=== PATIENT | male | born 1955 | race Two or more races ===

== ENCOUNTER 2025-07-06 20:16 | Emergency (ER) | payer MEDICARE, OTHER ==
[~2025-07-06] VITALS: Ht 170.2 cm; Wt 79.4 kg
[2025-07-06 20:24] VITALS: BP 116/65; TEMP 98.3; O2SAT 96
[2025-07-06 21:28] LABS: PLATELET COUNT (AUTO) 176 K/uL (150-450); RED BLOOD CELL COUNT(AUTO) 3.63 MIL/uL (4.5-6.0); RED CELL DISTRIBUTION WIDTH 13.9 % (11.5-15.0); WHITE BLOOD COUNT (AUTO) 5.9 K/uL (4.3-11.0)
[2025-07-06 21:39] LABS: CALCIUM, SERUM 8.8 mg/dL (8.5-10.1); CREATININE 0.9 mg/dL (0.6-1.3); SODIUM SERUM 139 mmol/L (136-145); UREA NITROGEN, BLOOD 28 mg/dL (7-18)
[2025-07-06 21:45] LABS: ASPARTATE AMINOTRANSFERASE 39 U/L (15-37); TOTAL PROTEIN, SERUM 7.5 g/dL (6.4-8.2)
[2025-07-06 23:13] LABS: APPEARANCE,URINE CLEAR (CLEAR); BLOOD, URINE TRACE-INTA Ery/uL (NEGATIVE); LEUKOCYTE ESTERASE ,URINE NEGATIVE (NEGATIVE); NITRITE, URINE NEGATIVE (NEGATIVE); UGLUCOSE NEGATIVE (NEGATIVE)
[2025-07-06 23:42] LABS: AMPHETAMINE, URINE NEGATIVE (NEGATIVE); BARBITURATE, URINE NEGATIVE (NEGATIVE); BENZODIAZEPINE, URINE NEGATIVE (NEGATIVE); CANNABINOID, URINE NEGATIVE (NEGATIVE); COCCAINE, URINE NEGATIVE (NEGATIVE); OPIATE, URINE NEGATIVE (NEGATIVE)
[2025-07-06 23:43] LABS: ADD URINE CULTURE NO; SQUAMOUS EPITHELIAL CELL,UR 0-2 /HPF (None Seen)
== END 2025-07-07 01:42 ==
LOC: ER 20:32
DX: R45.6 Violent behavior (principal); I10 Essential (primary) hypertension; G81.90 Hemiplegia, unspecified affecting unspecified side; F31.9 Bipolar disorder, unspecified; Z86.73 Personal history of transient ischemic attack (TIA), and cerebral infarction without residual deficits; Z79.899 Other long term (current) drug therapy
CPT/HCPCS: 36415; 80048-TC; 80076-TC; 81001; 85025-TC

== ENCOUNTER 2025-07-19 12:48 | Inpatient (IN) | payer MEDICARE, OTHER ==
[~2025-07-19] VITALS: Ht 170.2 cm; Wt 62.6 kg
[2025-07-19 13:20] LABS: PLATELET COUNT (AUTO) 133 K/uL (150-450); RED BLOOD CELL COUNT(AUTO) 3.87 MIL/uL (4.5-6.0); RED CELL DISTRIBUTION WIDTH 13.9 % (11.5-15.0); WHITE BLOOD COUNT (AUTO) 5.2 K/uL (4.3-11.0)
[2025-07-19] MEDS ORDERED: ASCO500T20 PO (13:25)
[2025-07-19] MEDS ORDERED: FAMO20TA8 PO (13:25)
[2025-07-19] MEDS ORDERED: QUET50TA PO (13:25)
[2025-07-19] MEDS ORDERED: ACET325T53 PO (13:25)
[2025-07-19] MEDS ORDERED: BISA10SU11 RC (13:25)
[2025-07-19] MEDS ORDERED: DIVA250T4 PO (13:25)
[2025-07-19] MEDS ORDERED: AZAT100T PO (13:25)
[2025-07-19] MEDS ORDERED: CRAN425C6 PO (13:25)
[2025-07-19] MEDS ORDERED: CHOL100062 PO (13:25)
[2025-07-19] MEDS ORDERED: QUET100T PO (13:25)
[2025-07-19 13:26] LABS: CALCIUM, SERUM 8.8 mg/dL (8.5-10.1); CREATININE 0.8 mg/dL (0.6-1.3); SODIUM SERUM 137 mmol/L (136-145); UREA NITROGEN, BLOOD 17 mg/dL (7-18)
[2025-07-19] MEDS ORDERED: AMIN30LI66 PO (13:26)
[2025-07-19] MEDS ORDERED: MAGN400O6 PO (13:26)
[2025-07-19] MEDS ORDERED: NA P133E RC (13:26)
[2025-07-19] MEDS ORDERED: HYDR-4076 PO (13:26)
[2025-07-19] MEDS ORDERED: MELA3TAB41 PO (13:26)
[2025-07-19] MEDS ORDERED: MULT-594 PO (13:26)
[2025-07-19] MEDS ORDERED: LACO10SO PO (13:26)
[2025-07-19] MEDS ORDERED: SENN8.6T19 PO (13:26)
[2025-07-19 13:34] LABS: ALCOHOL, BLOOD < 3 mg/dL (0-10); ASPARTATE AMINOTRANSFERASE 23 U/L (15-37); TOTAL PROTEIN, SERUM 7.9 g/dL (6.4-8.2)
[2025-07-19 13:39] LABS: APPEARANCE,URINE CLEAR (CLEAR); BLOOD, URINE Trace-intact Ery/uL (NEGATIVE); LEUKOCYTE ESTERASE ,URINE Negative (NEGATIVE); NITRITE, URINE NEGATIVE (NEGATIVE); UGLUCOSE Negative (NEGATIVE)
[2025-07-19 13:45] LABS: ADD URINE CULTURE NO; SQUAMOUS EPITHELIAL CELL,UR None Seen /HPF (None Seen)
[2025-07-19 13:57] LABS: AMPHETAMINE, URINE NEGATIVE (NEGATIVE); BARBITURATE, URINE NEGATIVE (NEGATIVE); BENZODIAZEPINE, URINE NEGATIVE (NEGATIVE); CANNABINOID, URINE NEGATIVE (NEGATIVE); COCCAINE, URINE NEGATIVE (NEGATIVE); OPIATE, URINE NEGATIVE (NEGATIVE)
[2025-07-19] MEDS ORDERED: Z GUARD REMEDY 4 OZ OINT TP PRN (16:30)
[2025-07-19] MEDS ORDERED: MAGNESIUM HYDROXIDE 30 ML UDC PO PRN ×2 (16:30)
[2025-07-19] MEDS ORDERED: NA PHOS,M-B/NA PHOS,DI-BA 1 EA ENEMA RC PRN (16:30)
[2025-07-19] MEDS ORDERED: ONDANSETRON HCL/PF 4 MG/2 ML VIAL IVP PRN (16:30)
[2025-07-19] MEDS ORDERED: MAG HYDROX/AL HYDROX/SIMETH 30 ML UDC PO PRN (16:30)
[2025-07-19] MEDS: LACOSAMIDE ORAL SOLN 50 MG/5 ML UDC PO SCH (17:08)
[2025-07-19] MEDS: SENNOSIDES 8.6 MG TABLET PO SCH (17:09)
[2025-07-19] MEDS: FAMOTIDINE (20 MG) 20 MG TABLET PO SCH (17:09)
[2025-07-19 18:26] VITALS: BP 129/60; TEMP 98.4; O2SAT 97
[2025-07-19] MEDS: IV NS 0.9% 1,000 ML IV PRN (18:32)
[2025-07-19 20:00] VITALS: BP 127/71; TEMP 98.1; O2SAT 98
[2025-07-19] MEDS: QUETIAPINE FUMARATE 100 MG TABLET PO SCH (22:20)
[2025-07-20 05:55] LABS: PLATELET COUNT (AUTO) 118 K/uL (150-450); RED BLOOD CELL COUNT(AUTO) 3.74 MIL/uL (4.5-6.0); RED CELL DISTRIBUTION WIDTH 14.0 % (11.5-15.0); WHITE BLOOD COUNT (AUTO) 4.1 K/uL (4.3-11.0)
[2025-07-20 06:10] LABS: CALCIUM, SERUM 8.9 mg/dL (8.5-10.1); CREATININE 0.9 mg/dL (0.6-1.3); PHOSPHORUS 3.7 mg/dL (2.5-4.9); SODIUM SERUM 141.0 mmol/L (136-145); UREA NITROGEN, BLOOD 16.0 mg/dL (7-18)
[2025-07-20 08:00] VITALS: BP 122/66; TEMP 97.6; O2SAT 100
[2025-07-20 16:00] VITALS: BP 134/73; TEMP 97.7; O2SAT 96
[2025-07-20] MEDS: LORAZEPAM 1 MG TABLET PO PRN (17:32)
[2025-07-20 20:00] VITALS: BP 137/80; TEMP 98.1; O2SAT 96
[2025-07-21 06:56] LABS: PLATELET COUNT (AUTO) 114 K/uL (150-450); RED BLOOD CELL COUNT(AUTO) 3.98 MIL/uL (4.5-6.0); RED CELL DISTRIBUTION WIDTH 13.8 % (11.5-15.0); WHITE BLOOD COUNT (AUTO) 4.8 K/uL (4.3-11.0)
[2025-07-21 07:33] LABS: ASPARTATE AMINOTRANSFERASE 21.0 U/L (15-37); CALCIUM, SERUM 9.0 mg/dL (8.5-10.1); CREATININE 0.8 mg/dL (0.6-1.3); PHOSPHORUS 3.4 mg/dL (2.5-4.9); SODIUM SERUM 141.0 mmol/L (136-145); TOTAL PROTEIN, SERUM 7.5 g/dL (6.4-8.2); UREA NITROGEN, BLOOD 14.0 mg/dL (7-18)
[2025-07-21 08:04] VITALS: BP 138/66; TEMP 98.2; O2SAT 94
[2025-07-21] MEDS: GABAPENTIN 100 MG CAPSULE PO SCH (12:25)
[2025-07-21 16:00] VITALS: BP 144/75; TEMP 98; O2SAT 95
[2025-07-21 20:00] VITALS: BP_SYST 127; BP_SYST 147; BP_DIAS 64; TEMP 98.1; O2SAT 99
[2025-07-21] MEDS: ACETAMINOPHEN 325 MG TABLET PO PRN (21:35)
[2025-07-21 22:34] VITALS: TEMP 98
== END 2025-07-22 15:46 | DRG 640 ==
LOC: ER 12:52 → MED 15:06
PROVIDERS: ADMIT Internal Medicine
DX: E86.0 Dehydration (principal); G93.41 Metabolic encephalopathy; F03.92 Unspecified dementia, unspecified severity, with psychotic disturbance; F29 Unspecified psychosis not due to a substance or known physiological condition; G40.909 Epilepsy, unspecified, not intractable, without status epilepticus; I69.398 Other sequelae of cerebral infarction; I10 Essential (primary) hypertension; F32.9 Major depressive disorder, single episode, unspecified; F03.93 Unspecified dementia, unspecified severity, with mood disturbance; S81.811A Laceration without foreign body, right lower leg, initial encounter; K21.9 Gastro-esophageal reflux disease without esophagitis; M24.561 Contracture, right knee; Z79.899 Other long term (current) drug therapy; M24.562 Contracture, left knee; S81.812A Laceration without foreign body, left lower leg, initial encounter; X58.XXXA Exposure to other specified factors, initial encounter; Y92.9 Unspecified place or not applicable
CPT/HCPCS: 36415; 73590-TC; 80048-TC; 80053-TC; 80076-TC; 81001; 83735-TC; 84100-TC; 85025-TC; 87081-TC; A4223; G0378; G0480; J7030